=== PATIENT | female | born 2000 | race Caucasian/White ===

== ENCOUNTER 2024-09-30 16:58 | Outpatient (CLI) | payer OTHER, SELFPAY ==
--- OUTSIDE RECORDS SUMMARY | 2024-09-30 18:06 | XMS_ITS | Clinical Summary ---
Author Organization [facility] Address [address] [place] [address] Phone Care Team Providers Care Air Box Tester Name Role Phone Jessi Burns APRN, CNP Primary Care P rovider Allergies No known active allergies Medications sertraline (ZOLOFT) 100 MG TabletIndicatio ns:Anxiety TAKE 1 AND 1/2 TABLETS BY MOUTH DAILY 135 Tablet 1 04/21/2024 Active Benzonatate 200 MG CapsuleIndicati ons:Acute cough Take 1 Capsule by mouth 3 times daily as needed for Cough. 42 Capsule 06/16/2024 Active Active Problems No known active problems Encounters Date Type Department Care Team Description 09/30/2024 Telephone [facility] - [address] [place] [address] Jessi Burns APRN, CNP 09/01/2024 Results Follow-Up [facility] [place] [address] Zhou Anderson PAC 08/29/2024 10:40 AM WEB MANAGER Lab [facility] [place] [address] Lab, [facility] Screening-pulmonary TB Discharge Disposition: Discharged to home or Selfcare 08/29/2024 Travel 08/29/2024 Telephone [facility] - Primary Care - [facility] [address] [address] Zhou Andesron, PAC Need Order from Last 3 Months Immunizations Immunization Administration Dates Next Due DTAP VACCINE 10/25/2006, 3,03/11/2003,12/10 Flumist, influenza virus vaccine 04/24/2011 H1N1 Flu, Unspecified Formulation 05/17/2018 HEP B/HIB Combined Vaccine 10/26/2003,03/11/2003 ,2002 Hepatitis B Vaccine 10/26/2003, 3,2002,10/14 Hepatitis B Vaccine, Pediatric/adolescent 2002 Human Papillomavirus Vaccine (HPV), quadrivalent 05/07/2015,04/14/2014,12/23/2013 Inactivated Polio Vaccine 10/25/2006,07/2002,03/11/2003,12/10 Influenza Vaccine Nasal 05/12/2015,04/14,03/21/2013,04/04 Influenza Vaccine, Quadrivalent, PF 06/15/2023,0 07/31/2022,06/16/2021 Influenza,Split Virus,Trivalent,Injectable,PF 05/06/2024 MMR Vaccine 10/21/2023,10/25/2006,10/26/2003 Meningococcal Group B OMV 05/18/2020 Meningococcal Vaccine 02/16/2020,02/26/2017 Pneumococcal Vaccine - 13 Valent 04/15/2003,02/14,2002 Pneumococcal Vaccine Peds - 7 Valent 2002 TB Skin Test 06/16/2021 TD VACCINE 07/31/2022 TDAP Vaccine 08/31/2023,12/23/2013 Varicella Vaccine Live 10/25/2006,10/26/2003 Family History Medical History Relation Name Comments No Known Problems Father No Known Problems Mother Relation Name Status Comments Father Alive Mother Alive Social History Tobacco Use Types Packs/Day Years Used Date Smoking Tobacco: Never Smokeless Tobacco: Never Tobacco Cessation:Counseling Given: No Alcohol Use Standard Drinks/Week Comments Never 0 (1 standard drink = 0.6 oz pur e alcohol) PHQ-2 Answer Date Recorded Total Score - Questions 1-9 0 11/14 Sexually Active Control Partners Comments Not Currently Comments No Sex and Gender Information Value Date Recorded Sex Assigned at Not on file Legal Sex Female 8:09 AM WEB MANAGER Gender Identity Not on file Sexual Orientation Not on file Last Filed Vital Signs Vital Sign Reading Time Taken Comments Blood Pressure 128/80 06/16/2024 3:50 PM WEB MANAGER Pulse 76 06/16/2024 3:50 PM WEB MANAGER Temperature 36.4 C (97.6 F) 06/16/2024 3:50 PM WEB MANAGER Respiratory Rate 20 06/16/2024 3:50 PM WEB MANAGER Oxygen Saturation 98% 06/16/2024 3:50 PM WEB MANAGER Inhaled Oxygen Concentration - - Weight 112 kg (247 lb) 06/16/2024 3:50 PM WEB MANAGER Height 155.3 cm (5' 1.14 ) 05/06/2024 9:16 AM CD T Body Mass Index 46.45 05/06/2024 9:16 AM CDT Plan of Treatment Health Maintenance Due Date Last Done Comments Meningococcal B Immunization (2 of 2 - Bexsero SCDM 2-dose series) 11/15/2020 05/18/2020 SARS-COV-2 Immunization ( - season) 2024 08/30/2021, 03/24/2021, 03/03/2021 Pap Smear 11/29/2026 11/30/2023 DTaP/Tdap/Td Immunization (8 - Td or Tdap) 08/31/2033 08/31/2023, 07/31/2022, 12/23/2013, Additional history exists Respiratory Syncytial Virus (RSV) Immunization (Adult) (1 - 1-dose 75+ series) 2077 Pneumococcal Immunization Combined Aged Out 04/15/2003, 03/11/2003, 2002, Additional history exists No longer eligible based on patient's age to complete this topic Hepatitis B Immunization Completed 004, 10/26/2003, 03/11/2003, Additional history exists Polio (IPV) Immunization Discontinued 007, 04/15/2003, 03/11/2003, Additional history exists Varicella Immunization Discontinued 10/25/2006, 2003 Human Papillomavirus (HPV) Immunization Completed 05/07/2015, 04/14/2014, 12/23/2013 Meningococcal Immunization (ACWY) Completed 02/16/2020, 02/26/2017 Hepatitis C Virus (HCV) Screening Completed 04/27/2023 Measles Mumps Rubella (MMR) Immunization Discontinued 10/21/2023, 10/25/2006, 10/26/2003 Influenza Immunization Completed , 06/15/2023, 07/31/2022, Additional history exists Rotavirus Immunization Aged Out No lo nger eligible based on patient's age to complete this topic Procedures Procedure Name Priority Date/Time Associated Diagnosis Comments QUANTIFERON-TB GOLD PLUS Routine 08/29/2024 9:07 AM WEB MANAGER Screening-pulmonary TB from Last 3 Months Results * QUANTIFERON-TB GOLD PLUS (08/29/2024 9:07 AM WEB MANAGER) NIL CONTROL 0.01 <8.01 IU/mL 08/31/2024 10:48 AM WEB MANAGER [facility] TB ANTIGEN 1 0.00 <0.35 IU/mL 08/31/2024 10:48 AM WEB MANAGER [facility] TB ANTIGEN 2 0.01 <0.35 IU/mL 08/31/2024 10:48 AM WEB MANAGER [facility] MITOGEN CONTROL 9.99 >0.49 IU/mL 08/31/19 25 10:48 AM WEB MANAGER [facility] INTEPRETATION TB NEGATIVE NEGATIVE, NEGATIVE (TB antigen response less than 25% of internal negative control value) 08/31/2024 10:48 AM WEB MANAGER [facility] Comment:No immune response t o Mycobacterium tuberculosis antigens was noted. M. tuberculosis infection unlikely. Blood Venipuncture / Unknown 08/29/2024 9:07 AM WEB MANAGER 08/29/2024 9:07 AM WEB MANAGER Narrative [facility] - 08/31/2024 10:48 AM WEB MANAGER A POSITIVE QUANTIFERON-TB GOLD PLUS RESULT SHOULD NOT BE THE SOLE OR DEFINITIVE BASIS FOR DETERMINING INFECTION WITH M.TUBERCULOSIS. Diagnosing or excluding tuberculosis disease, and assessing the probability of LTBI, requires a combination of epidemiological, historical, medical and diagnostic findings (e.g., acid fast bacilli (AFB) smear and culture, chest xray) that should be taken into account when interpreting QFT-Plus results. Furthermore, the magnitude of the measured gamma interferon level cannot be correlated to stage or degree of infection, level of immune responsiveness, or likelihood for progression to active disease. The Nil control adjusts for background (e.g., elevated levels of circulating gamma interferon or presence of heterophile antibodies). The Mitogen control serves as an internal positive control and verifies each specimen tested can produce a gamma interferon response. Low mitogen may occur with insufficient lymphocytes, reduced lymphocyte activity due to improper specimen handling, filling/mixing of the mitogen tube, or inability of the patient's lymphocytes to generate gamma interferon. Infection with other Mycobacteria, including M. kansasii, M. szulgai, and M. marinum, may cause false positive results. A negative QuantiFERON-TB Gold Plus result does not preclude the possibility of M. tuberculosis infection or tuberculosis disease: false negative results can be due to incorrect blood sample collection/ improper handling of the specimen, stage of infection (e.g., specimen obtained prior to the development of cellular immune response), co-morbid conditions which affect immune function, or other individual immunological factors. The minimum number of lymphocytes required for a reliable test has not been established and may also be variable. Diagnostic testing for Mycobacterium tuberculosis using Interferon Gamma Release Assays should follow applicable published guidelines, including when testing in populations such as children, women, and HIV-infected or otherwise immunocompromised individuals. https://www.cdc.gov/tb/publications/guidelines/testing.htm us Zhou Anderson [facility] IMMUNOLOGY ORDERABLES Final Result [facility] [address] [place] [address], from Last 3 Months Insurance [employer] Care Teams Air Box Tester Relationship Specialty Start Date End Date Jessi Burns APRN, SEO ASSOCIATE [address] [place] [address] PCP - General Advanced Practice Nurse 12/02/20
--- OUTSIDE RECORDS SUMMARY | 2024-09-30 18:06 | XMS_ITS | Encounter Summary ---
Author Organization [facility] Address [address] [place] [address] Phone Care Team Providers Care Web Manager Name Role Phone Jessi Burns APRN, CNP Primary Care P rovider Encounter Details Date Type Department Care Team (Late st Contact Info) Description 09/30/2024 [facility] - [place] [address] [place] [address] Jessi Burns APRN, CNP [address] [place] [address] Social History Tobacco Use Types Packs/Day Years Used Date Smoking Tobacco: Never Smokeless Tobacco: Never Alcohol Use Standard Drinks/Week Comments Never 0 (1 standard drink = 0.6 oz pur e alcohol) PHQ-2 Answer Date Recorded Total Score - Questions 1-9 0 11/14 Sexually Active Control Partners Comments Not Currently Comments No Sex and Gender Information Value Date Recorded Sex Assigned at Not on file Legal Sex Female 8:09 AM SOFTWARE VALIDATION ENGINEER Gender Identity Not on file Sexual Orientation Not on file documented as of this encounter Miscellaneous Notes * Telephone Encounter - Naida Mathew RN - 09/30/2024 8:03 AM CDT Pt called and requested an HCG test to be ordered and faxed to [facility]. Spoke with PCP and approval given to order and fax. documented in this encounter Plan of Treatment Scheduled Orders Name Type Priority Associated Diagnoses Orde r Schedule HCG BETA SUBUNIT SERUM QUANT Lab Routine Encounter for test, result unknown Expected: 09/30/2024, Expires: 10/31/2024 documented as of this encounter Visit Diagnoses Diagnosis Screening for -associated plasma protein A- Primary Other specified screening Encounter for test, result unknown documented in this encounter Additional Health Concerns Assessment Noted Time PHQ-9 Depression Total Score: 0 12/03/19 9:00 AM CDT documented as of this encounter Care Teams Web Manager Relationship Specialty Start Date End Date Jessi Burns APRN, CRIMINAL COURT JUDGE [address] [place] [address] PCP - General Advanced Practice Nurse 12/02/20 documented as of this encounter
--- OUTSIDE RECORDS SUMMARY | 2024-09-30 18:06 | XMS_ITS | Encounter Summary ---
Author Organization [facility] Address [address] [place] [address] Phone Care Team Providers Care Legal Billing Specialist Name Role Phone Jessi Burns APRN, CNP Primary Care P kyle Encounter Details Date Type Department Care Team (Late st Contact Info) Description 09/01/2024 Results Follow-Up [facility] - Primary Care - [place] [place] [address] Zhou Anderson PAC [address] [place] [address] Social History Tobacco Use Types Packs/Day Years [...] on file Legal Sex Female 8:09 AM AUDIOVISUAL PRODUCTION SPECIALIST Gender Identity Not on file Sexual Orientation Not on file documented as of this encounter Progress Notes * Kaylene Burgos, HUMAN RELATIONS MANAGER - 09/01/2024 7:53 AM CST Attempted to call pt, no answer, LMOM to call back for results. OVISUAL PRODUCTION SPECIALIST documented in this encounter Plan of Treatment Not on file documented as of this encounter Visit Diagnoses Not on filedocumented in this encounter Additional Health Concerns Assessment Noted Time PHQ-9 Depression Total Score: 0 12/03/19 9:00 AM CDT documented as of this encounter Care Teams Legal Billing Specialist Relationship Specialty Start Date End Date Jessi Burns APRN, PIANO SOUNDING BOARD MATCHER [address] [place] [address] PCP - General Advanced Practice Nurse 12/02/20 documented as of this encounter
--- OUTSIDE RECORDS SUMMARY | 2024-09-30 18:06 | XMS_ITS | Encounter Summary ---
Author Organization [facility] Address [address] [place] [address] Phone Care Team Providers Care Valve Grinder Name Role Phone Jessi Burns APRN, CNP Primary Care P rovider Reason for Visit * Reason Comments Medication Refill Encounter Details Date Type Department Care Team (Late st Contact Info) Description 10/05/2022 Refill [facility] - Primary Care - [place] [address] [address] Jessi Burns APRN, CNP [address] [place], [place] [id number] Medication Refill Social History Tobacco Use Types Packs/Day Years [...] on file Legal Sex Female 8:09 AM EARLY CHILDHOOD EDUCATION SPECIALIST Gender Identity Not on file Sexual Orientation Not on file documented as of this encounter Miscellaneous Notes * Telephone Encounter - Nicole Stanford RN - 10/05/2022 3:58 PM CDT Medication failed the protocol, provider to review and approve the medication order if appropriate. Requested Prescriptions Pending Prescriptions Disp Refills sertraline (ZOLOFT) 50 MG Tablet [Pharmacy Med Name: SERTRALINE 50MG TABLETS] 135 Tablet 0 Sig: TAKE 1 AND 1/2 TABLETS BY MOUTH DAILY SSRI (6 Month Refill Only) Protocol Failed - 10/05/2022 3:54 PM Failed - Patient has established therapy with SSRI for at least 6 months Passed - No test in the past 12 months or most recent test was negative Passed - No active on record Passed - Visit with relevant provider in past 6 months or upcoming 90 days Recent Visits Date Type Provider Dept 07/31/22 [facility] Visit Jessi Burns APRN, CNP [facility] Showing recent visits within past 182 days and meeting all other requirements Future Appointments No visits were found meeting these conditions. Showing future appointments within next 90 days and meeting all other requirements Passed - Has an encounter in the past 6 months with a depression, anxiety, adjustment disorder, OCD, or PTSD visit diagnosis documented in this encounter Plan of Treatment Not on file documented as of this encounter Visit Diagnoses Diagnosis Anxiety Anxiety state, unspecified documented in this encounter Additional Health Concerns Infection Onset Date Last Indicated Resolved Time COVID - 19 04/24/2024 04/24/2024 04/24/2024 10:1 9 AM CDT Assessment Noted Time PHQ-9 Depression Total Score: 0 12/03/19 9:00 AM CDT documented as of this encounter Care Teams Valve Grinder Relationship Specialty Start Date End Date Jessi Burns APRN, CHEIKH [address] [place] [address] PCP - General Advanced Practice Nurse 12/02/20 documented as of this encounter
== END 2024-09-30 16:59 | disposition home or self-care (01) ==
DX: Z32.00 Encounter for pregnancy test, result unknown (principal)
CPT/HCPCS: 36415; 84702

== ENCOUNTER 2024-10-22 17:38 | Outpatient (CLI) | payer OTHER, SELFPAY ==
--- OUTSIDE RECORDS SUMMARY | 2024-10-22 17:42 | XMS_ITS | Encounter Summary ---
Author Organization [facility] Address [address] [place] [address] Phone Care Team Providers Care Boat Carpenter Mechanic Name Role Phone Jessi Burns APRN, CNP Primary Care P kyle Encounter Details Date Type Department Care Team (Late st Contact Info) Description 09/01/2024 Results Follow-Up [facility] - Primary Care - [place] [address] [place] [address] Zhou Anderson PAC [address] [place] [address] Social History Tobacco Use Types [...] on file Legal Sex Female 8:09 AM WELDING ROD COATER Gender Identity Not on file Sexual Orientation Not on file documented as of this encounter Progress Notes * Kaylene Burgos, RECREATIONAL RESORT MANAGER - 09/01/2024 7:53 AM CST Attempted to call pt, no answer, LMOM to call back for results. ING ROD COATER documented in this encounter Plan of Treatment Not on file documented as of this encounter Visit Diagnoses Not on filedocumented in this encounter Additional Health Concerns Assessment Noted Time PHQ-9 Depression Total Score: 0 12/03/19 9:00 AM CDT documented as of this encounter Care Teams Boat Carpenter Mechanic Relationship Specialty Start Date End Date Jessi Burns APRN, INVESTIGATIVE AGENT [address] [place] [address] PCP - General Advanced Practice Nurse 12/02/20 documented as of this encounter
--- OUTSIDE RECORDS SUMMARY | 2024-10-22 17:42 | XMS_ITS | Encounter Summary ---
Author Organization [facility] Healthcare Address [address] [place] [address] Care Team Providers Care Emergency Room Orderly Name Role Phone No, Physician Primary Care Provider [phone] Zuri Montalvo MD Unavailable [phone] Jean Paul Cheng MD Unavailable [phone] Reason for Referral * Diagnostic Imaging (Routine) - Canceled Specialty Diagnoses / Procedures Referred By Fred zabala Referred To Contact Obstetrics Diagnoses Threatened Procedures US Ob Limited Jean Paul Cheng MD [address] [place] [address] [address] [place] [address] Phone: tel: fax: Referral ID Status Reason Start Date Expiration Date V isits Requested Visits Authorized [id number] Canceled 10/02/2024 11/01/2025 1 1 Reason for Visit * Reason Onset Date Comments Threatened Ab 10/01/2024 Encounter Details Date Type Department Care Team ([facility] Contact Info) Description 10/01/2024 Telephone [facility] [address] [facility] [address] [place] [address] Cira Noonan RN Threatened Ab Social History Tobacco Use Types Packs/Day Years Used Date Smoking Tobacco: Never Smokeless Tobacco: Never Social Connection and Isolation Panel [NHANES] A nswer Date Recorded In a typical week, how many times do you talk on the phone with family, friends, or neighbors? Three times a week 10/19/19 24 How often do you get togethe r with friends or relatives? Three times a week 10/19/2023 How often do you attend chur ch or worship services? Patient declined 10/19/2023 Do you belong to any clubs o r organizations such as mandaeism groups, unions, fraternal or athletic groups, or school groups? Patient declined 10/19/2023 How often do you attend meet ings of the clubs or organizations you belong to? Patient declined 10/19/2023 Are you , , di vorced, , never , or living with a partner? Living with partner 10/19/2023 AUDIT-C Answer Date Recorded Q1: How often do you have a drink containing alcohol? Never 10/19/2023 Q2: How many drinks containi ng alcohol do you have on a typical day when you are drinking? Patient does not drink Q3: How often do you have si x or more drinks on one occasion? Never 10/19/2023 Overall Financial Resource Strain (CARDIA) Answe r Date Recorded How hard is it for you to pa y for the very basics like food, housing, medical care, and heating? Not hard at all 10/19/2023 PHQ-2 Answer Date Recorded PHQ-2 Total Score (If total score is 3 or more points, staff should administer the PHQ-9) 0 10/19/2023 [facility] - Occupational Stress Questionnaire Answer Date Recorded Do you feel stress - tense, restless, nervous, or anxious, or unable to sleep at night because your mind is troubled all the time - these days? Not at all 10/19/2023 Hunger Vital Sign Answer Date Recorded Within the past 12 months, y ou worried that your food would run out before you got the money to buy more. Never true 10/19/19 24 Within the past 12 months, t he food you bought just didn't last and you didn't have money to get more. Never true 10/19/2023 PRAPARE - Transportation Answer Date Re corded In the past 12 months, has l ack of transportation kept you from medical appointments or from getting medications? No 11/2023 In the past 12 months, has l ack of transportation kept you from meetings, work, or from getting things needed for daily living? No 10/19/2023 Housing Stability Vital Sign Answer Edouard e Recorded In the last 12 months, was t here a time when you were not able to pay the mortgage or rent on time? No 10/19/2023 In the last 12 months, how many places have you lived? 2 10/19/2023 In the last 12 months, was t here a time when you did not have a steady place to sleep or slept in a senior living (including now)? No 10/19/2023 PHQ-9 Answer Date Recorded PHQ-9 Total Score 0 10/19/2023 Personal Safety Answer Date Recorded Have you ever been in or are you currently in a harmful physical or emotional relationship or is someone making you feel afraid or unsafe? 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 for labs. Order faxed to them at [phone] * Telephone Encounter - Cira Noonan RN - 10/10/2024 12:04 PM CDT [place]QHCG [place] [address]80 to 235. Pt aware. Enc to repeat it in 7-10 days. Order placed. * Telephone Encounter - Cira Noonan RN - 10/06/2024 10:20 AM CDT Pt called back. Pt passed clots and had heavy bleeding starting Sunday and continues to have bleeding. Pt to repeat BQHCG on 10-10-24. Order placed. * Telephone Encounter - Cira Noonan RN - 10/06/2024 9:40 AM CDT Pt emailed in on 10-04-24 stating that she was having cramping with a heavy flow. LMOM for pt to call office. * Telephone Encounter - Cira oNonan RN - 10/03/2024 8:10 AM CDT Pt is measuring 4-5 weeks on US and should be 8 weeks as LMP was 08-03-24. Her BQHCG at [facility] was [address] on 09-30-24 and 48 hours later was on 10-02-24 it was 29[address]. Progesterone 5.45. Discussed with pt that this is not a normal trend in labs. Expected management discussed. Will call Sunday with plan after discussing with JT. * Telephone Encounter - Cira Noonan RN - 10/02/2024 1:47 PM CDT See US report from today. Our US tech got pt to be 4-5 weeks. Will order a BQHCG and Progesterone. BQHCG on 09-30-24 was [address]117. Pt to do labs now. * Telephone Encounter - Cira Noonan RN - 10/02/2024 10:40 AM CDT Pt states that she is still having light bleeding and was told at outside facility that she is 7 weeks with a hematoma. They only did transabdominal. Will order pt and US to have an official read per JT. Order placed. Pt to come today at 1330. * Telephone Encounter - Cira Noonan RN - 10/01/2024 10:15 AM CDT BQHCG from PCP/[facility] [id number]. Pt states she is getting an outside US this evening. Enc to call with report. * Telephone Encounter - Cira Noonan RN - 10/01/2024 9:27 AM CDT See [employer] conversation, 09-29-24. Pt sent in a message yesterday, 09-30-24 at 1515, stating that her PCP was ordering labs as her bleeding was still present. JT and I were both off yesterday. Attempted to call pt to see if she had labs done, but phone call was disconnected. [employer] message sent topt to see if she had labs done? Pt should get an US. documented in this encounter Plan of Treatment Scheduled Orders Name Type Priority Associated Diagnoses Order Schedule US Ob Limited Imaging Schedule Routine , Read Routine (OP Routine) Threatened 1 Occurrences starting 10/02/2024 until 10/02/2025 hCG, blood, quantitative Lab Routine SAB (spontaneous ) Expected: 10/28/2024, Expires: 10/10/2025 documented as of this encounter Results * (ABNORMAL) hCG, blood, quantitative (10/10/2024 8:04 AM CDT) hCG, quant 235.0(H) 0.0 - 5.0 IUnits/L Comment: Interpretive Data Male: < 5 IU/L Non- premenopausal Female: <5 IU/L The Collin hCG Beta Quant assay procedure was used. Results from different manufacturers or methods may not be comparable. Serial testing should be performed using the same method. Interpretive Data was last revised on 2023 Blood 10/10/2024 8:04 AM CDT 10/10/2024 10:46 AM CDT Jean Paul Cheng MD LAB BLOOD ORDERABLES Edite d Result - Final Performing Organization Address [facility] Co de Phone Number [facility] [address] [facility] [place] [address] * (ABNORMAL) hCG, blood, quantitative (10/02/2024 2:15 PM CDT) hCG, quant 13,096.0( H) 0.0 - 5.0 IUnits/L Comment: Interpretive Data Male: < 5 IU/L Non- premenopausal Female: <5 IU/L The [employer]lin hCG Beta Quant assay procedure was used. Results from different manufacturers or methods may not be comparable. Serial testing should be performed using the same method. Interpretive Data was last revised on 2023 Blood 10/02/2024 2:15 PM CDT 10/02/2024 3:44 PM CDT Jean Paul Cheng MD LAB BLOOD ORDERABLES Final Result Performing Organization Address [facility] Co de Phone Number [facility] [address] [facility] [place] [address] * Progesterone (10/02/2024 2:15 PM CDT) Progesterone 5.45 ng/mL Comment: Interpretive Data Males: <0.15 ng/mL Females: Follicular <0.20 ng/mL Ovulation <4.1 ng/mL Luteal 4.1 - 14.5 ng/mL 1st Trimester 11.0 - 44.0 ng/mL 2nd Trimester 25.0 - 83.0 ng/mL 3rd Trimester 59.0 - 214.0 ng/mL Postmenopausal <0.13 ng/mL Current interpretive data was last revised 2021. Testing performed by: [facility], [address] [facility], [place]., [address] Blood 10/02/2024 2:15 PM CDT 10/02/2024 5:53 PM CDT us Jean Paul Cheng MD LAB BLOOD ORDERABLES Final Result [facility] ([place]) [address] [facility] Department [place] [address] documented in this encounter Visit Diagnoses Diagnosis Threatened - Primary SAB (spontaneous ) Unspecified spontaneous without mention of complication documented in this encounter Care Teams Emergency Room Orderly Relationship Specialty Start Date End Date No, Physician PCP - General 02/26/23 Zuri Montalvo MD [address] [place] [address] 02/26/23 Jean Paul Cheng MD [address] [place] [address] [address] [facility] [place] [address] Blocker And Cutter Contact Lens Obstetrics and Gynecology 10/20/23 documented as of this encounter
--- OUTSIDE RECORDS SUMMARY | 2024-10-22 17:42 | XMS_ITS | Encounter Summary ---
Author Organization [facility] Healthcare Address [address] [place] [address] Care Team Providers Care Metal Fence Erector Name Role Phone No, Physician Primary Care Provider [phone] Zuri Montalvo MD Unavailable [phone] Jean Paul Cheng MD Unavailable [phone] Encounter Details Date Type Department Care Team (Late st Contact Info) Description 10/10/2024 Results Follow-Up [facility] [address] [place] [address] [address] [place] [address] Jean Paul Cheng MD [address] [place] [address] [address] [place] [address] Social History Tobacco Use Types Packs/Day Years Used Date Smoking Tobacco: Never Smokeless Tobacco: Never Social Connection and Isolation Panel [NHANES] A nswer Date Recorded In a typical week, how many times do you talk on the phone with family, friends, or neighbors? Three times a week 10/19/19 How often do you get togethe r with friends or relatives? Three times a week 10/19/2023 How often do you attend chur ch or baptist services? Patient declined 10/19/2023 Do you belong to any clubs o r organizations such as restorationism groups, unions, fraternal or athletic groups, or [...] staff should administer the PHQ-9) 0 10/19/2023 [facility] - Occupational Stress Questionnaire Answer Date [...] place to sleep or slept in a fdc (including now)? 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 Miscarriage is resolving. Let's check another QHCG is about 10 days. documented in this encounter Plan of Treatment Not on file documented as of this encounter Visit Diagnoses Not on filedocumented in this encounter Care Teams Metal Fence Erector Relationship Specialty Start Date End Date No, Physician PCP - General 02/26/23 Zuri Montalvo MD [address] [place] [address] 02/26/23 Jean Paul Cheng MD [address] [place] [address] DR HALL [address] [place] [address] T[employer] Balancer Obstetrics and Gynecology 10/20/23 documented as of this encounter
--- OUTSIDE RECORDS SUMMARY | 2024-10-22 17:42 | XMS_ITS | Referral Summary ---
Author Organization [facility] Address [address] [place] [address] Care Team Providers Care Certified Vehicle Fire Investigator Name Role Phone No, Physician Primary Care Provider [phone] Zuri Montalvo MD Unavailable [phone] Jean Paul Cheng MD Unavailable [phone] Encounters Date Type Department Care Team Description 10/10/2024 Results Follow-Up [facility] [address], [place] [phone] Jean Paul Cheng MD 10/10/2024 8:00 AM CDT Lab [address] SAB (spontaneous ) 10/06/2024 Results Follow-Up [facility] [address] [phone] Jean Paul Cheng MD 10/02/2024 2:15 PM CDT Lab [address] Threatened 10/02/2024 Orders Only [facility] [address], [place] [phone] Donna Pemberton MD 10/02/2024 Telephone [facility] [address], [place] [phone] Nicole Cornell MA 10/02/2024 1:30 PM CDT Ancillary Procedure [facility] [address] [place] [address] Encounter to establish gestational age using ultrasound 10/01/2024 Telephone [facility] [address] [facility] [address] [place] [address] Cira Noonan RN Threatened Ab 09/05/2024 Telephone [facility] [address] [facility] [address] [place] [address] Cira Noonan RN OB US Orders 09/05/2024 Telephone [facility] [address] [facility] [address] [place] [address] My Hinojosa from Last 3 Months Allergies No known active allergies Medications vit 08-itvu-[id number]-dh a 27mg iron- 800 mcg-250 mg capsule Take by mouth Active sertraline (ZOLOFT) 50 mg tablet Take 1 tablet (50 mg total) by mouth daily 30 tablet 6 09/21/2023 Active norgestimate-eth inyl estradioL (ORTHO-CYCLEN) 0.25-35 mg-mcg per tablet Take 1 tablet by mouth daily 28 tablet 12 11/30/2023 Active Active Problems Problem Noted Date Diagnosed Date 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 Three times a week 10/19/19 How often do you get togethe r with friends or relatives? Three times a week 10/19/2023 How often do you attend [facility] or yazdanism services? Patient declined 10/19/2023 Do you belong to any clubs o r organizations such as zoroastrian groups, unions, fraternal or athletic groups, or [...] staff should administer the PHQ-9) 0 10/19/2023 [facility] - Occupational Stress Questionnaire Answer Date [...] place to sleep or slept in a prison (including now)? 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 Gender Identity Not on file Sexual Orientation Not on file Last Filed Vital Signs Vital Sign Reading Time Taken Comments Blood Pressure 126/80 11/30/2023 10:59 AM CDT Pulse 79 10/21/2023 8:00 AM CDT Temperature 36.4 C (97.6 F) 10/21/2023 12:00 AM CDT Respiratory Rate 16 10/21/2023 8:00 AM CDT Oxygen Saturation 100% 10/21/2023 8:00 AM CDT Inhaled Oxygen Concentration - - Weight 105.7 kg (233 lb) 11/30/2023 10:59 AM CDT Height 157.5 cm (5' 2 ) 11/30/2023 10:59 AM CDT Body Mass Index 42.62 11/30/2023 10:59 AM CDT Plan of Treatment Not on file Procedures Procedure Name Priority Date/Time Associated Diagnosis Comments HCG, BLOOD, QUANTITATIVE Routine 10/10/2024 8:04 AM CDT SAB (spontaneous ) PROGESTERONE Routine 10/02/2024 2:15 PM CDT Threatened HCG, BLOOD, QUANTITATIVE Routine 10/02/2024 2:15 PM CDT Threatened US OB UNDER 14 WEEKS Schedule Routine, Read Routine (OP Routine) 10/02/2024 2:08 PM CDT Encounter to establish gestational age using ultrasound HCG, BLOOD, QUANTITATIVE Routine 09/30/2024 2:07 PM CDT PAP, REFLEX HPV Routine 11/30/2023 11:58 AM CDT Encounter for visit HEPATITIS C ANTIBODY Routine 04/27/2023 8:55 AM CDT Encounter for supervision of normal first in first trimester from Last 3 Months or Most Recently Relevant to Health Maintenance Results * (ABNORMAL) hCG, blood, quantitative (10/10/2024 [...] BLOOD ORDERABLES Edite d Result - Final [facility]) [address] [facility] Department of Laboratories [place] [id number] * Progesterone (10/02/2024 2:15 PM CDT) Progesterone 5.45 ng/mL Comment: Interpretive Data Males: <0.15 ng/mL Females: Follicular <0.20 ng/mL Ovulation <4.1 ng/mL Luteal 4.1 - 14.5 ng/mL 1st Trimester 11.0 - 44.0 ng/mL 2nd Trimester 25.0 - 83.0 ng/mL 3rd Trimester 59.0 - 214.0 ng/mL Postmenopausal <0.13 ng/mL Current interpretive data was last revised 2021. Testing performed by: [facility], [address] [facility], [place]., [address] Blood 10/02/2024 2:15 PM CDT 10/02/2024 5:53 PM CDT Jean Paul Cheng MD LAB BLOOD ORDERABLES Final Result Performing Organization Address [facility] Co de Phone Number [facility] ([place] [address] [facility] Department [place] [address] * (ABNORMAL) hCG, blood, quantitative (10/02/2024 2:15 [...] BLOOD ORDERABLES Final Result Performing Organization Address [facility] Co de Phone Number [facility] ([place] [address] [facility] [place] [address] * US Ob Under 14 Weeks (10/02/2024 2:08 PM CDT) Anatomical Region Laterality Modality Abdomen N/A Ultrasound 10/02/2024 1:37 PM CDT Impressions 10/05/2024 1:43 PM CDT 1. Intrauterine gestational sac and yolk sac. pole is not definitely seen. No cardiac activity is seen. Suggestion of a subchorionic hemorrhage 2.8 x 2.5 x 3.6 cm. Clinical correlation is recommended. Findings could represent early or miscarriage. 2. Normal appearing ovaries bilaterally. Narrative Procedure Note Jean Paul Cheng MD - 10/05/2024 IMPRESSION: 1. Intrauterine gestational sac and yolk sac. pole is notdefinitely seen. No cardiac activity is seen. Suggestion of asubchorionic hemorrhage 2.8 x 2.5 x 3.6 cm. Clinical correlation isrecommended. Findings could represent early or miscarriage. 2. Normal appearing ovaries bilaterally. Jean Paul Cheng MD IMG OB US PROCEDURES Final Result * hCG, blood, quantitative (09/30/2024 2:07 PM CDT) Blood Historical Provider LAB BLOOD ORDERABLES Debbie l Result * Pap, reflex HPV (11/30/2023 11:58 AM CDT) CLINICAL INFORMATION: Robert Donnelly Comment:None given LMP Robert Donnelly Comment:NONE GIVEN Previous Pap Robert Donnelly Comment:NONE GIVEN Prev. Bx Robert Donnelly Comment:NONE GIVEN SOURCE: Robert Donnelly Comment:Cervix, Endocervix Pap, specimen adequacy Robert Donnelly Comment: Satisfactory for evaluation. Endocervical/transformation zone component present. Age and/or menstrual status not provided HPV interp Robert Donnelly Comment: Cytology Results: Negative for intraepithelial lesion or malignancy. COMMENTS Robert Donnelly Comment: This Pap test has been evaluated with computer assisted technology. Nurse'S Companion Juan M Barrera Comment: RASHAAD JAMES(ASCP) CT Screening location: [facility] Administration [place] [address] Comment Robert Donnelly Comment: EXPLANATORY NOTE: The Pap is a screening test for cervical cancer. It is not a diagnostic test and is subject to false negative and false positive results. It is most reliable when a satisfactory sample, regularly obtained, is submitted with relevant clinical findings and history, and when the Pap result is evaluated along with historic and current clinical information. Thin prep 11/30/2023 11:5 8 AM CDT 12/01/2023 2:28 AM CDT Jean Paul Cheng MD LAB CYTOLOGY ORDERABLES Fi nal Result ROBERT [place]nel[place] [address] Administration [place] [id number] * Hepatitis C antibody Blood (04/27/2023 8:55 AM CDT) Hep C Ab Nonreactive Nonreactive Comment: Interpretive Data Nonreactive: Antibodies to HCV not detected. Does NOT exclude the possibility of recent exposure to HCV. Equivocal: Equivocal for HCV antibodies. Supplemental molecular testing will be automatically performed to determine infection status in accordance with current CDC screening recommendations. Reactive: Positive for HCV antibodies. This may represent current or past HCV infection. Supplemental molecular testing will be automatically performed to determine current infection status in accordance with current CDC screening recommendations. Interpretive data was last revised on 2019. Testing performed by: [facility], [address] [place] [address], [place]., [address] Blood 04/27/2023 8:55 AM CDT 04/27/2023 1:52 PM CDT Jean Paul Cheng MD LAB MICROBIOLOGY - GENERAL ORDERABLES Edited Result - Final [facility] [address] [facility] Department [place] [address] from Last 3 Months or Most Recently Relevant to Health Maintenance Insurance [employer] OOS BLUE ACCESS OOS Member Subscriber Plan / Payer (Ef fective 2019-Present) Name:Megan William Relation to Subscriber:Child Name:RAFFI SPANN Date of :[birth year]99 (Home) Address: [address] [place] [address] Payer ID:[id number] (NAIC) Type:[facility] Address: [address] CHOICE PLUS Advance Directives For more information, please contact: [phone] * Full Code (Latest Code Status on File) Date Activated Date Inactivated Comments 10/19/2023 5:05 AM 10/21/2023 4:15 PM Full CPR in ca se of cardiopulmonary arrest Care Teams Certified Vehicle Fire Investigator Relationship Specialty Start Date End Date No, Physician PCP - General 02/26/23 Zuri Montalvo MD [address] [place] [address] 02/26/23 Jean Paul Cheng MD [address] [place] [address] [place] [address] Technical Analyst Obstetrics and Gynecology 10/20/23
--- OUTSIDE RECORDS SUMMARY | 2024-10-22 17:42 | XMS_ITS | Clinical Summary ---
Author Organization [facility] Address [address] [place] [address] Phone Care Team Providers Care Moisture Machine Tender Name Role Phone Jessi Burns APRN, CNP [...] Type Department Care Team Description 09/30/2024 Telephone [facility] - [address] [place] [address] Jessi Burns APRN, CNP 09/01/2024 Results Follow-Up [facility] [place] [address] Zhou Anderson PAC 08/29/2024 10:40 AM HEAD TENNIS PROFESSIONAL Lab [facility] [place] [address] Lab, [facility] Screening-pulmonary TB Discharge Disposition: Discharged to home or Selfcare 08/29/2024 Travel 08/29/2024 Telephone [facility] - Primary Care - [facility] [place] [address] Zhou Anderson, PAC Need Order from Last 3 Months [...] on file Legal Sex Female 8:09 AM HEAD TENNIS PROFESSIONAL Gender Identity Not on file Sexual Orientation Not on file Last Filed Vital Signs Vital Sign Reading Time Taken Comments Blood Pressure 128/80 06/16/2024 3:50 PM HEAD TENNIS PROFESSIONAL Pulse 76 06/16/2024 3:50 PM HEAD TENNIS PROFESSIONAL Temperature 36.4 C (97.6 F) 06/16/2024 3:50 PM HEAD TENNIS PROFESSIONAL Respiratory Rate 20 06/16/2024 3:50 PM HEAD TENNIS PROFESSIONAL Oxygen Saturation 98% 06/16/2024 3:50 PM HEAD TENNIS PROFESSIONAL Inhaled Oxygen Concentration - - Weight 112 kg (247 lb) 06/16/2024 3:50 PM HEAD TENNIS PROFESSIONAL Height 155.3 cm (5' 1.14 ) 05/06/2024 [...] Procedure Name Priority Date/Time Associated Diagnosis Comments UR TEST QUAL 09/30/2024 12:00 AM CDT QUANTIFERON-TB GOLD PLUS Routine 08/29/2024 9:07 AM HEAD TENNIS PROFESSIONAL Screening-pulmonary TB from Last 3 Months Results * UR TEST QUAL (09/30/2024 12:00 AM CDT) 09/30/2024 us Provider Scan URINE ORDERABLES Final Result SCAN * QUANTIFERON-TB GOLD PLUS (08/29/2024 9:07 AM HEAD TENNIS PROFESSIONAL) NIL CONTROL 0.01 <8.01 IU/mL 08/31/2024 10:48 AM HEAD TENNIS PROFESSIONAL [facility] TB ANTIGEN 1 0.00 <0.35 IU/mL 08/31/2024 10:48 AM HEAD TENNIS PROFESSIONAL [facility] TB ANTIGEN 2 0.01 <0.35 IU/mL 08/31/2024 10:48 AM HEAD TENNIS PROFESSIONAL [facility] MITOGEN CONTROL 9.99 >0.49 IU/mL 08/31/19 25 10:48 AM HEAD TENNIS PROFESSIONAL [facility] INTEPRETATION TB NEGATIVE NEGATIVE, NEGATIVE (TB antigen response less than 25% of internal negative control value) 08/31/2024 10:48 AM HEAD TENNIS PROFESSIONAL [facility] Comment:No immune response t o Mycobacterium tuberculosis antigens was noted. M. tuberculosis infection unlikely. Blood Venipuncture / Unknown 08/29/2024 9:07 AM HEAD TENNIS PROFESSIONAL 08/29/2024 9:07 AM HEAD TENNIS PROFESSIONAL Narrative [facility] - 08/31/2024 10:48 AM HEAD TENNIS PROFESSIONAL A POSITIVE QUANTIFERON-TB GOLD PLUS RESULT SHOULD [...] otherwise immunocompromised individuals. https://www.cdc.gov/tb/publications/guidelines/testing.htm us Zhou Anderson [facility] IMMUNOLOGY ORDERABLES Final Result [facility] [address] [place] [address], [place] from Last 3 Months Insurance [employer] Care Teams Moisture Machine Tender Relationship Specialty Start Date End Date Jessi Burns, HAND FABRIC CUTTER, GOVERNMENT CLERK [address] [place] [address] PCP - General Advanced Practice Nurse 12/02/20
--- OUTSIDE RECORDS SUMMARY | 2024-10-22 17:42 | XMS_ITS | Encounter Summary ---
Author Organization [facility] Healthcare Address [address] [place] [address] Care Team Providers Care Cosmetic Sales Consultant Name Role Phone No, Physician Primary Care Provider [phone] Zuri Montalvo MD Unavailable [phone] Jean Paul Cheng MD Unavailable [phone] Encounter Details Date Type Department Care Team (Late st Contact Info) Description 10/02/2024 Telephone [facility] [address] [place] [address] [address] [place] [address] Nicole Cornell MA Social History Tobacco Use Types Packs/Day Years [...] 10/19/2023 How often do you attend chur or tenriism services? Patient declined 10/19/2023 Do you belong to any clubs o r organizations such as spiritism groups, unions, fraternal or athletic groups, or [...] staff should administer the PHQ-9) 0 10/19/2023 [facility] of Occupat ional [facility] - Occupational Stress Questionnaire Answer Date Recorded [...] place to sleep or slept in a group home (including now)? No 10/19/2023 PHQ-9 Answer Date Recorded PHQ-9 Total Score 0 10/19/2023 Personal Safety Answer Date Recorded Have you ever been in or are you currently in a harmful physical or emotional relationship or is someone making you feel afraid or unsafe? Denies 10/19/2023 Comments No Sex and Gender Information Value Date Recorded Sex Assigned at Not on file Legal Sex Female 11:53 PM LEISURE TRAVEL AGENT Gender Identity Not on file Sexual Orientation Not on file documented as of this encounter Plan of Treatment Not on file documented as of this encounter Visit Diagnoses Not on filedocumented in this encounter Care Teams Cosmetic Sales Consultant Relationship Specialty Start Date End Date No, Physician PCP - General 02/26/23 Zuri Montalvo MD [address] [place] [address] 02/26/23 Jean Paul Cheng MD [address] [place] [address] [address] Planning Intern Obstetrics and Gynecology 10/20/23 documented as of this encounter
--- OUTSIDE RECORDS SUMMARY | 2024-10-22 17:42 | XMS_ITS | Encounter Summary ---
Author Organization [facility] Address [address] [place] [address] Phone Care Team Providers Care Toll Mechanic Name Role Phone Jessi Burns APRN, CNP Primary Care P rovider Reason for Visit * Reason Comments Medication Refill Encounter Details Date Type Department Care Team (Late st Contact Info) Description 10/05/2022 Refill [facility] - [facility] - [place]ine [address] [place] [address] Jessi Burns APRN, CNP [address] [place], [place] [id number] Medication Refill Social History Tobacco Use Types [...] on file Legal Sex Female 8:09 AM MANUAL WRITER Gender Identity Not on file Sexual Orientation [...] 07/31/22 Office Visit Jessi Burns APRN, CNP [facility] 05/24/22 Office Visit Jessi Burns APRN, CNP [facility] Showing recent visits within past 182 [...] documented as of this encounter Care Teams Toll Mechanic Relationship Specialty Start Date End Date Jessi Burns APRN, CHEIKH [address] [place] [address] PCP - General Advanced Practice Nurse 12/02/20 documented as of this encounter
--- OUTSIDE RECORDS SUMMARY | 2024-10-22 17:42 | XMS_ITS | Clinical Summary ---
Author Organization [facility] Medical Office Building B Address [address] [place] [address] Care Team Providers Care Teller Supervisor Name Role Phone No, Physician Primary Care Provider [phone] Zuri Montalvo MD Unavailable [phone] Jean Paul Cheng MD Unavailable [phone] Allergies No known active allergies Medications vit 68-rquk-irwfd-dh a 27mg iron- 800 mcg-250 mg capsule Take by mouth Active sertraline (ZOLOFT) 50 mg tablet Take 1 tablet (50 mg total) by mouth daily 30 tablet 6 09/21/2023 Active norgestimate-eth inyl estradioL (ORTHO-CYCLEN) 0.25-35 mg-mcg per tablet Take 1 tablet by mouth daily 28 tablet 12 11/30/2023 5 Active Active Problems Problem Noted Date Diagnosed Date 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 11/2023 Other specified anxiety disorders 05/28/2023 Encounters Date Type Department Care Team Description 10/10/2024 8:00 AM CDT Lab [address] SAB (spontaneous ) 10/10/2024 Results Follow-Up [facility] [address] [place] [address] [address] [place] [address] Jean Paul Cheng MD 10/06/2024 Results Follow-Up [facility] [address] [place] [address] [address] [place] [address] Jean Paul Cheng MD 10/02/2024 2:15 PM CDT Lab [address] Threatened 10/02/2024 1:30 PM CDT Ancillary Procedure [facility] [address] [place] [address] Encounter to establish gestational age using ultrasound 10/02/2024 Orders Only [facility] [place] [address] ProviderDonna MD 10/02/2024 Telephone [facility] [address] [place] [address] Nicole Cornell MA 10/01/2024 Telephone [facility] [place] [address] Cira Noonan, JOSE GUADALUPE Threatened Ab 09/05/2024 Telephone [facility] [place] [address] Cira Noonan, RN OB US Orders 09/05/2024 Telephone [facility] [address] [place] [address] My Hinojosa from Last 3 Months Immunizations Immunization Administration Dates Next Due Influenza, Quadrivalent, Spl it, Preservative Free, Intramuscular 06/15/2023 MMR 10/21/2023 Tdap 08/31/2023 Family History Medical History Relation Name Comments Hypertension Father Hypertension Mother Relation Name Status Comments Father Mother Social History Tobacco Use Types Packs/Day Years [...] week 10/19/2023 How often do you attend [facility] or worship services? Patient declined 10/19/2023 Do you belong to any clubs o r organizations such as latter-day groups, unions, fraternal or athletic groups, or [...] staff should administer the PHQ-9) 0 10/19/2023 [facility] of Occupat ional Health - Occupational Stress Questionnaire Answer Date Recorded [...] place to sleep or slept in a retirement (including now)? No 10/19/2023 PHQ-9 Answer Date [...] on file Legal Sex Female 11:53 PM REPORTER ANCHOR Gender Identity Not on file Sexual Orientation Not on file Obstetrics History Para Term AB IAB SAB Ectopic Multiple Livin g Live Births 2 1 1 1 1 0 1 1 Date Outcome GA Total Labor Labor/2nd/3rd Weight Sex Type Anes PTL Khloe A1 A5 Name Clin 2023 Term 38w 2d 1h 43m 1h 17m/0h 21m/0h 05m 2.78 kg (6 lb 2.1 oz) F Vagina l Epidur al N Livin g 7 8 Kinsl ey Janessa Menjivar, Krishan Pardo MD Complications:None [facility] 2024 SAB 5w0 d SAB Last Filed Vital Signs Vital Sign Reading [...] 11/30/2023 10:59 AM CDT Plan of Treatment Health Maintenance Due Date Last Done Comments Chlamydia and Gonorrhea (GC/CT) Screening 2002 Regular Well Visit/Exam 18-64 2020 Meningococcal B Vaccine (2 of 2 - Bexsero SCDM 2-dose series) 11/15/2020 05/18/2020 Depression Screening 10/08/2024 10/09/2023, 10/09/19 24 Cervical Cancer Screening 11/29/2024 11/30/2023 DTaP/Tdap/Td Vaccine (8 - Td or Tdap) 08/31/2033 08/31/2023, 07/31/2022, 12/23/2013, Additional history exists Pneumococcal vaccine <65 Aged Out 003, 03/11/2003, 2002 No longer eligible based on patient's age to complete this topic Hepatitis B Screening Completed 10/26/2003 , 10/26/2003, 03/11/2003, Additional history exists Varicella Vaccines Completed 10/25/2006, 10/26/2003 HPV Vaccines Completed 05/07/2015, 03/18, 12/23/2013 Hepatitis C Screening Completed 04/27/2023 Influenza Vaccine Completed 05/06/2024, , 07/31/2022, Additional history exists Procedures Procedure Name Priority Date/Time Associated Diagnosis [...] d Result - Final Performing Organization Address City/[facility]/ZIP Co de Phone Number [facility] ([facility]) 1 [facility] [employer] [place] [address] * Progesterone (10/02/2024 2:15 PM CDT) Progesterone 5.45 ng/mL Comment: Interpretive Data Males: <0.15 ng/mL Females: Follicular <0.20 ng/mL Ovulation <4.1 ng/mL Luteal 4.1 - 14.5 ng/mL 1st Trimester 11.0 - 44.0 ng/mL 2nd Trimester 25.0 - 83.0 ng/mL 3rd Trimester 59.0 - 214.0 ng/mL Postmenopausal <0.13 ng/mL Current interpretive data was last revised 2021. Testing performed by: [facility], [address] [place] [address] Blood 10/02/2024 2:15 PM CDT 10/02/2024 5:53 PM CDT Jean Paul Cheng MD LAB BLOOD ORDERABLES Final Result Performing Organization Address City/[facility]/ZIP Co de Phone Number [facility] ([facility]) 1 [facility] [place] [place] [address] * (ABNORMAL) hCG, blood, quantitative (10/02/2024 2:15 [...] 2:15 PM CDT 10/02/2024 3:44 PM CDT Result [facility] Jean Paul Cheng MD LAB BLOOD ORDERABLES Final Result [facility]) 1 [facility] [place] [address] * US Ob Under 14 Weeks (10/02/2024 [...] HPV (11/30/2023 11:58 AM CDT) CLINICAL INFORMATION: [place] Comment:None given LMP [facility] Comment:NONE GIVEN Previous Pap [facility] Comment:NONE GIVEN Prev. Bx [facility] [place] Comment:NONE GIVEN SOURCE: [facility]nel[facility] Comment:Cervix, Endocervix Pap, specimen adequacy [facility] [place] Comment: Satisfactory for evaluation. Endocervical/transformation zone component present. Age and/or menstrual status not provided HPV interp [facility] Comment: Cytology Results: Negative for intraepithelial lesion or malignancy. COMMENTS [facility] Comment: This Pap test has been evaluated with computer assisted technology. Security Control Room Officer Juan M Barrera Comment: RASHAAD JAMES(ASCP) CT Screening location: [address] [address] [place] [address] Comment [facility]nel[facility] Comment: EXPLANATORY NOTE: The Pap is [...] MD LAB CYTOLOGY ORDERABLES Fi nal Result [place] CallCourtney [place] [address] [address] [place] [place] [address] * Hepatitis C antibody Blood (04/27/2023 8:55 [...] last revised on 2019. Testing performed by: [facility], [address] [place] [address], [place]., [address] Blood 04/27/2023 8:55 AM CDT 04/27/2023 1:52 PM CDT us Jean Paul Cheng MD LAB MICROBIOLOGY - GENERAL ORDERABLES Edited Result - Final [facility] ([facility]) 1 [facility] [place] [address] from Last 3 Months or Most Recently Relevant to Health Maintenance Insurance [employer] OOS [employer] OOS Member Subscriber Plan / Payer (Ef fective 2019-Present) Name:Megan William Relation to Subscriber:Child Name:RAFFI SPANN Date of :[birth year]99 (Home) Address: [address] [place] [id number] Payer ID:[id number] (NAIC) Type: [employer]IANCE Address: [address] [place] [id number] [facility] CHOICE PLUS Advance Directives For more information, please contact: [phone] * Full Code (Latest Code Status on File) Date Activated Date Inactivated Comments 10/19/2023 5:05 AM 10/21/2023 4:15 PM Full CPR in ca se of cardiopulmonary arrest Care Teams Teller Supervisor Relationship Specialty Start Date End Date No, Physician PCP - General 02/26/23 Zuri Montalvo MD [address] [place] [address] 02/26/23 Jean Paul Cheng MD [address] [place] [address] [place] [address] Block Out Machine Operator Obstetrics and Gynecology 10/20/23
--- OUTSIDE RECORDS SUMMARY | 2024-10-22 17:42 | XMS_ITS | Encounter Summary ---
Author Organization [facility] Healthcare Address [address] [place] [address] Care Team Providers Care Section Gang Worker Name Role Phone No, Physician Primary Care Provider [phone] Zuri Montalvo MD Unavailable [phone] Jean Paul Cheng MD Unavailable [phone] Encounter Details Date Type Department Care Team (Late st Contact Info) Description 10/06/2024 Results Follow-Up [facility] [address] [place] [address] [address] [place] [address] Jean Paul Cheng MD [address] [place] [address] [address] [place] [address] Social History Tobacco Use Types [...] often do you attend chur ch or scientology services? Patient declined 10/19/2023 Do you belong to any clubs o r organizations such as methodist groups, unions, fraternal or athletic groups, or [...] staff should administer the PHQ-9) 0 10/19/2023 [facility] of Occupat ional [facility] - Occupational Stress Questionnaire Answer Date Recorded [...] place to sleep or slept in a longterm (including now)? No 10/19/2023 PHQ-9 Answer Date [...] on file Legal Sex Female 11:53 PM FREELANCE DESIGNER Gender Identity Not on file Sexual Orientation Not on file documented as of this encounter Miscellaneous Notes * Result Encounter Note - Jean Paul Cheng MD - 10/06/2024 5:20 PM CDT I discussed result with patient. She had bleeding and cramping and passed clots and tissue this weekend. She believes she completed the miscarriage. She is planning on rechecking a quantitative hCG on Sunday. I discussed that 15-20% of the time miscarriage happens and that she did not do anything wrong. Plan to follow quantitative hCG until less than 5. Blood type is A positive. documented in this encounter Plan of Treatment Not on file documented as of this encounter Visit Diagnoses Not on filedocumented in this encounter Care Teams Section Gang Worker Relationship Specialty Start Date End Date No, Physician PCP - General 02/26/23 Zuri Montalvo MD [address] [place] [address] 02/26/23 Jean Paul Cheng MD [address] [place] [address] [address] [place] [address] Senior Database Engineer Obstetrics and Gynecology 10/20/23 documented as of this encounter
== END 2024-10-22 17:39 | disposition home or self-care (01) ==
LOC: CHSLAB 17:41
PROVIDERS: PCP Nurse Practitioner; Visit Provider Obstetrics & Gynecology
DX: O03.9 Complete or unspecified spontaneous abortion without complication (principal)
CPT/HCPCS: 36415; 84702